=== PATIENT | male | born 1970 | race Caucasian/White ===

== ENCOUNTER 2023-09-05 09:01 | Inpatient (IN) ==
[2023-09-05] MEDS ORDERED: ONDANSETRON 4 MG/2 ML VIAL IV ONE (09:36)
[2023-09-05] MEDS ORDERED: 0.9 % SODIUM CHLORIDE 2,000 ML IV ONE (09:37)
[2023-09-05 10:30] LABS: Basophils # (Auto) 0.15 K/mcL (0.00-0.30); Basophils % (Auto) 0.8 % (0.0-2.0); Eosinophils # (Auto) 0.05 K/mcL (0.00-0.70); Eosinophils % (Auto) 0.3 % (0.0-7.0); Hemoglobin 15.2 g/dL (13.7-17.5); Lymphocytes # (Auto) 1.21 K/mcL (1.50-4.80); Lymphocytes % (Auto) 6.7 % (15.5-49.0); Mean Cell Volume 98.9 fL (80.0-100.0); Mean Corpuscular HGB Conc 35.3 g/dL (31.0-36.0); Mean Platelet Volume 10.7 fL (8.8-12.5); Monocytes # (Auto) 2.27 K/mcL (0.10-0.90); Monocytes % (Auto) 12.5 % (1.0-12.0); Platelet Count 393 K/mcL (140-440); RBC 4.35 M/mcL (4.63-6.08); Red Cell Distribution Width 15.9 % (11.5-14.5); WBC 18.2 K/mcL (4.5-11.0)
[2023-09-05] MEDS: PIPERACILLIN SODIUM/TAZOBACTAM 3.375 GM in DEXTROSE 5% IN WATER 50 ML IV SCH ×4 (10:44→23:38)
[2023-09-05] MEDS ORDERED: 0.9 % SODIUM CHLORIDE 1,000 ML IV ONE (10:53)
[2023-09-05 11:12] LABS: ALT/SGPT 75 U/L (<40); AST/SGOT 158 U/L (<40); Albumin 2.4 gm/dL (3.2-5.2); Albumin/Globulin Ratio 0.5 (1.0-2.3); Alkaline Phosphatase 203 U/L (39-117); Bilirubin,Total 10.8 mg/dL (0.1-1.0); Blood Urea Nitrogen 25 mg/dL (6-20); Calcium 8.4 mg/dL (8.6-10.4); Carbon Dioxide 19 mmol/L (22-30); Chloride 100 mmol/L (96-108); Globulin 4.8 gm/dL (2.2-3.7); Glucose 93 mg/dL (70-105)
[2023-09-05 12:26] LABS: Appearance,Urine HAZY (Clear); Bacteria,Urine FEW /hpf (0); Color,Urine Amber; Culture Indicated,Urine Yes; Glucose,Urine (UA) Negative (Negative); Ketones,Urine Negative (Negative); Leukocyte Esterase,Urine Negative /uL (Negative); Mucus,Urine MANY /hpf; Nitrate,Urine Negative (Negative); Protein,Urine 30 mg/dL (Negative); Specific Gravity,Urine 1.019 (1.000-1.035); Urine Amorphous Crystals FEW /hpf; Urine Blood 0.03 mg/dL (Negative); Urine Hyaline Cast 18 /lph (0-2); Urine RBC < 1 /hpf (0-3); Urine Renal Epithelial Cells 4 /hpf (0-2); Urine Squamous Epithelial Cell 1 /hpf (0-4); Urine Transitional Epi Cells 2 /hpf (0-2); Urine WBC 9 /hpf (0-4)
[2023-09-05] MEDS ORDERED: ACETAMINOPHEN 325 MG TABLET PO ONE (15:18)
[2023-09-05] MEDS ORDERED: IPRATROPIUM/ALBUTEROL 3 ML AMPUL.NEB NEB PRN (17:11)
[2023-09-05] MEDS ORDERED: ONDANSETRON 4 MG/2 ML VIAL IV PRN (17:11)
[2023-09-05] MEDS ORDERED: ACETAMINOPHEN 650 MG/65 ML BAG IV ONE (17:11)
[2023-09-05] MEDS ORDERED: ACETAMINOPHEN 325 MG TABLET PO PRN (17:11)
[2023-09-05 17:41] LABS: INR 1.2 (0.9-1.1); Prothrombin Time 15.8 sec (11.9-14.5)
[2023-09-05] MEDS: 0.9 % SODIUM CHLORIDE 1,000 ML IV SCH (18:35)
[2023-09-05] MEDS: 0.9 % SODIUM CHLORIDE 10 ML SYRINGE IV SCH (20:42)
[2023-09-05] MEDS: DOCUSATE SODIUM 100 MG CAPSULE PO SCH (20:58)
[2023-09-05] MEDS: ASPIRIN 81 MG TAB.CHEW PO SCH (20:58)
[2023-09-05] MEDS: SENNOSIDES 1 TABLET PO SCH (22:28)
[2023-09-05] MEDS: MAGNESIUM OXIDE 400 MG TABLET PO SCH (22:29)
[2023-09-05] MEDS: azaTHIOprine 50 MG TABLET PO SCH (22:29)
[2023-09-05] MEDS: FISH OIL 1,000 MG CAPSULE PO SCH (22:29)
[2023-09-05] MEDS: PANTOPRAZOLE 40 MG TABLET PO SCH (22:30)
[2023-09-05] MEDS: URSODIOL 500 MG PO SCH (22:30)
[2023-09-05] MEDS: TACROLIMUS 0.5 MG CAPSULE PO SCH (22:30)
[2023-09-06] MEDS: morphine 4 MG/ML VIAL IV PRN ×3 (02:26→22:57)
[2023-09-06] MEDS: 0.9 % SODIUM CHLORIDE 10 ML SYRINGE IV SCH ×3 (05:12→21:13)
[2023-09-06] MEDS: 0.9 % SODIUM CHLORIDE 1,000 ML IV SCH ×3 (05:12→15:42)
[2023-09-06] MEDS: PIPERACILLIN SODIUM/TAZOBACTAM 3.375 GM in DEXTROSE 5% IN WATER 50 ML IV SCH ×4 (05:12→23:05)
[2023-09-06 07:56] LABS: INR 1.4 (0.9-1.1); Prothrombin Time 17.8 sec (11.9-14.5)
[2023-09-06 08:33] LABS: Basophils # (Auto) 0.07 K/mcL (0.00-0.30); Basophils % (Auto) 0.8 % (0.0-2.0); Eosinophils # (Auto) 0.31 K/mcL (0.00-0.70); Eosinophils % (Auto) 3.4 % (0.0-7.0); Hematocrit 50.8 % (40.1-51.0); Hemoglobin 17.8 g/dL (13.7-17.5); Lymphocytes % (Auto) 16.3 % (15.5-49.0); Mean Cell Volume 99.2 fL (80.0-100.0); Mean Platelet Volume 10.9 fL (8.8-12.5); Monocytes # (Auto) 0.99 K/mcL (0.10-0.90); Monocytes % (Auto) 10.7 % (1.0-12.0); Neutrophils % (Auto) 68.4 % (38.0-78.0); Platelet Count 247 K/mcL (140-440); Red Cell Distribution Width 15.9 % (11.5-14.5); WBC 9.2 K/mcL (4.5-11.0)
[2023-09-06 08:45] LABS: RBC 5.12 M/mcL (4.63-6.08)
[2023-09-06 09:06] LABS: ALT/SGPT 66 U/L (<40); AST/SGOT 127 U/L (<40); Albumin 2.2 gm/dL (3.2-5.2); Albumin/Globulin Ratio 0.5 (1.0-2.3); Alkaline Phosphatase 180 U/L (39-117); Bilirubin,Total 10.6 mg/dL (0.1-1.0); Blood Urea Nitrogen 22 mg/dL (6-20); Calcium 7.9 mg/dL (8.6-10.4); Carbon Dioxide 19 mmol/L (22-30); Chloride 105 mmol/L (96-108); Globulin 4.3 gm/dL (2.2-3.7); Glomerular Filtration Rate 123; Glucose 117 mg/dL (70-105)
[2023-09-06] MEDS: DOCUSATE SODIUM 100 MG CAPSULE PO SCH ×2 (09:23→21:12)
[2023-09-06] MEDS: MULTIVIT,THER IRON,CA,FA & MIN 1 TABLET PO SCH (09:24)
[2023-09-06] MEDS: FOLIC ACID 1 MG TABLET PO SCH (09:24)
[2023-09-06] MEDS: FISH OIL 1,000 MG CAPSULE PO SCH ×2 (09:24→21:12)
[2023-09-06] MEDS: MAGNESIUM OXIDE 400 MG TABLET PO SCH ×2 (09:24→21:12)
[2023-09-06] MEDS: ENOXAPARIN 40 MG/0.4 ML SYRINGE SQ SCH (09:24)
[2023-09-06] MEDS: LISINOPRIL 5 MG TABLET PO SCH (09:25)
[2023-09-06] MEDS: URSODIOL 500 MG PO SCH ×2 (09:25→21:12)
[2023-09-06] MEDS: predniSONE 5 MG TABLET PO SCH (09:25)
[2023-09-06] MEDS: TACROLIMUS 0.5 MG CAPSULE PO SCH ×2 (09:25→21:12)
[2023-09-06] MEDS: ACETAMINOPHEN 650 MG/65 ML BAG IV PRN (15:42)
[2023-09-06] MEDS: ASPIRIN 81 MG TAB.CHEW PO SCH (21:12)
[2023-09-06] MEDS: azaTHIOprine 50 MG TABLET PO SCH (21:12)
[2023-09-06] MEDS: traZODone HCL 50 MG TABLET PO PRN (21:13)
[2023-09-06] MEDS: PANTOPRAZOLE 40 MG TABLET PO SCH ×2 (21:13→21:15)
[2023-09-06] MEDS: SENNOSIDES 1 TABLET PO SCH (21:13)
[2023-09-07] MEDS: 0.9 % SODIUM CHLORIDE 1,000 ML IV SCH ×2 (03:27→10:01)
[2023-09-07] MEDS: ACETAMINOPHEN 650 MG/65 ML BAG IV PRN ×2 (03:38→22:43)
[2023-09-07] MEDS: PIPERACILLIN SODIUM/TAZOBACTAM 3.375 GM in DEXTROSE 5% IN WATER 50 ML IV SCH ×4 (05:26→23:24)
[2023-09-07] MEDS: 0.9 % SODIUM CHLORIDE 10 ML SYRINGE IV SCH ×3 (05:27→21:00)
[2023-09-07 07:31] LABS: Basophils # (Auto) 0.09 K/mcL (0.00-0.30); Basophils % (Auto) 0.7 % (0.0-2.0); Eosinophils # (Auto) 0.49 K/mcL (0.00-0.70); Eosinophils % (Auto) 3.7 % (0.0-7.0); Hematocrit 41.9 % (40.1-51.0); Hemoglobin 14.3 g/dL (13.7-17.5); Lymphocytes # (Auto) 1.25 K/mcL (1.50-4.80); Lymphocytes % (Auto) 9.5 % (15.5-49.0); Mean Cell Volume 100.7 fL (80.0-100.0); Mean Corpuscular HGB Conc 34.1 g/dL (31.0-36.0); Mean Platelet Volume 10.7 fL (8.8-12.5); Monocytes # (Auto) 1.31 K/mcL (0.10-0.90); Neutrophils % (Auto) 75.4 % (38.0-78.0); Platelet Count 395 K/mcL (140-440); RBC 4.16 M/mcL (4.63-6.08); Red Cell Distribution Width 16.3 % (11.5-14.5); WBC 13.1 K/mcL (4.5-11.0)
[2023-09-07 07:33] LABS: INR 1.2 (0.9-1.1); Prothrombin Time 15.3 sec (11.9-14.5)
[2023-09-07 07:45] LABS: ALT/SGPT 60 U/L (<40); AST/SGOT 98 U/L (<40); Albumin 2.2 gm/dL (3.2-5.2); Albumin/Globulin Ratio 0.5 (1.0-2.3); Alkaline Phosphatase 185 U/L (39-117); Bilirubin,Total 10.5 mg/dL (0.1-1.0); Blood Urea Nitrogen 16 mg/dL (6-20); Calcium 8.4 mg/dL (8.6-10.4); Carbon Dioxide 20 mmol/L (22-30); Chloride 104 mmol/L (96-108); Globulin 4.6 gm/dL (2.2-3.7); Glucose 83 mg/dL (70-105)
[2023-09-07] MEDS: morphine 4 MG/ML VIAL IV PRN (08:17)
[2023-09-07] MEDS: ENOXAPARIN 40 MG/0.4 ML SYRINGE SQ SCH (08:33)
[2023-09-07] MEDS: DOCUSATE SODIUM 100 MG CAPSULE PO SCH ×2 (08:33→20:57)
[2023-09-07] MEDS: FOLIC ACID 1 MG TABLET PO SCH (08:33)
[2023-09-07] MEDS: MAGNESIUM OXIDE 400 MG TABLET PO SCH ×2 (08:33→20:58)
[2023-09-07] MEDS: FISH OIL 1,000 MG CAPSULE PO SCH ×2 (08:33→20:57)
[2023-09-07] MEDS: predniSONE 5 MG TABLET PO SCH (08:34)
[2023-09-07] MEDS: MULTIVIT,THER IRON,CA,FA & MIN 1 TABLET PO SCH (08:34)
[2023-09-07] MEDS: URSODIOL 500 MG PO SCH ×2 (08:34→20:58)
[2023-09-07] MEDS: TACROLIMUS 0.5 MG CAPSULE PO SCH ×2 (08:35→20:58)
[2023-09-07] MEDS: LISINOPRIL 5 MG TABLET PO SCH (08:35)
[2023-09-07] MEDS ORDERED: KETOROLAC 10 MG TABLET PO PRN (12:35)
[2023-09-07] MEDS: azaTHIOprine 50 MG TABLET PO SCH (20:57)
[2023-09-07] MEDS: ASPIRIN 81 MG TAB.CHEW PO SCH (20:57)
[2023-09-07] MEDS: PANTOPRAZOLE 40 MG TABLET PO SCH (20:58)
[2023-09-07] MEDS: SENNOSIDES 1 TABLET PO SCH (20:58)
[2023-09-07] MEDS: traZODone HCL 50 MG TABLET PO PRN (22:22)
[2023-09-08] MEDS: PIPERACILLIN SODIUM/TAZOBACTAM 3.375 GM in DEXTROSE 5% IN WATER 50 ML IV SCH (05:58)
[2023-09-08] MEDS: 0.9 % SODIUM CHLORIDE 10 ML SYRINGE IV SCH (05:58)
[2023-09-08 06:36] LABS: Basophils % (Auto) 0.9 % (0.0-2.0); Eosinophils # (Auto) 0.34 K/mcL (0.00-0.70); Eosinophils % (Auto) 3.1 % (0.0-7.0); Hematocrit 39.3 % (40.1-51.0); Hemoglobin 13.5 g/dL (13.7-17.5); Lymphocytes % (Auto) 14.5 % (15.5-49.0); Mean Cell Volume 99.7 fL (80.0-100.0); Mean Corpuscular HGB Conc 34.4 g/dL (31.0-36.0); Mean Platelet Volume 10.7 fL (8.8-12.5); Monocytes # (Auto) 1.07 K/mcL (0.10-0.90); Monocytes % (Auto) 9.7 % (1.0-12.0); Neutrophils % (Auto) 71.2 % (38.0-78.0); Platelet Count 421 K/mcL (140-440); RBC 3.94 M/mcL (4.63-6.08); Red Cell Distribution Width 16.2 % (11.5-14.5); WBC 11.1 K/mcL (4.5-11.0)
[2023-09-08 06:53] LABS: INR 1.1 (0.9-1.1); Prothrombin Time 14.9 sec (11.9-14.5)
[2023-09-08 08:01] LABS: ALT/SGPT 50 U/L (<40); AST/SGOT 72 U/L (<40); Albumin 2.1 gm/dL (3.2-5.2); Albumin/Globulin Ratio 0.5 (1.0-2.3); Alkaline Phosphatase 167 U/L (39-117); Bilirubin,Total 8.8 mg/dL (0.1-1.0); Blood Urea Nitrogen 22 mg/dL (6-20); Calcium 8.7 mg/dL (8.6-10.4); Carbon Dioxide 22 mmol/L (22-30); Chloride 105 mmol/L (96-108); Globulin 4.4 gm/dL (2.2-3.7); Glomerular Filtration Rate 101; Glucose 101 mg/dL (70-105)
[2023-09-08] MEDS: MAGNESIUM OXIDE 400 MG TABLET PO SCH (08:38)
[2023-09-08] MEDS: URSODIOL 500 MG PO SCH (08:38)
[2023-09-08] MEDS: FISH OIL 1,000 MG CAPSULE PO SCH (08:38)
[2023-09-08] MEDS: DOCUSATE SODIUM 100 MG CAPSULE PO SCH (08:38)
[2023-09-08] MEDS: FOLIC ACID 1 MG TABLET PO SCH (08:38)
[2023-09-08] MEDS: MULTIVIT,THER IRON,CA,FA & MIN 1 TABLET PO SCH (08:38)
[2023-09-08] MEDS: ENOXAPARIN 40 MG/0.4 ML SYRINGE SQ SCH (08:38)
[2023-09-08] MEDS: predniSONE 5 MG TABLET PO SCH (08:38)
[2023-09-08] MEDS: LISINOPRIL 5 MG TABLET PO SCH (08:39)
[2023-09-08] MEDS: TACROLIMUS 0.5 MG CAPSULE PO SCH (08:39)
== END 2023-09-08 14:25 | disposition home or self-care (01) | DRG 444 ==
LOC: ED 09:01 → MEDSUR 17:12
PROVIDERS: ADMIT Internal Medicine; ATTEND Internal Medicine

== ENCOUNTER 2024-05-20 10:36 | Inpatient (IN) ==
[2024-05-20] MEDS ORDERED: IOPAMIDOL 100 ML BOTTLE IV ONE (10:37)
[2024-05-20 11:43] LABS: POC INR 1.2 (0.8-1.2); POC Pro Time 14.8 (11.9-14.5)
[2024-05-20 11:43] LABS: Basophils # (Auto) 0.09 K/mcL (0.00-0.30); Basophils % (Auto) 0.8 % (0.0-2.0); Eosinophils # (Auto) 0.49 K/mcL (0.00-0.70); Eosinophils % (Auto) 4.2 % (0.0-7.0); Hematocrit 42.5 % (40.1-51.0); Hemoglobin 14.6 g/dL (13.7-17.5); Lymphocytes # (Auto) 2.29 K/mcL (1.50-4.80); Lymphocytes % (Auto) 19.7 % (15.5-49.0); Mean Cell Volume 109.8 fL (80.0-100.0); Mean Corpuscular HGB Conc 34.4 g/dL (31.0-36.0); Mean Platelet Volume 9.9 fL (8.8-12.5); Monocytes # (Auto) 1.38 K/mcL (0.10-0.90); Monocytes % (Auto) 11.9 % (1.0-12.0); Neutrophils % (Auto) 62.7 % (38.0-78.0); Platelet Count 456 K/mcL (140-440); RBC 3.87 M/mcL (4.63-6.08); Red Cell Distribution Width 15.1 % (11.5-14.5); WBC 11.6 K/mcL (4.5-11.0)
[2024-05-20 11:52] LABS: Lactate Dehydrogenase 498 U/L (135-225)
[2024-05-20 11:55] LABS: ALT/SGPT 50 U/L (<40); AST/SGOT 105 U/L (<40); Albumin/Globulin Ratio 0.6 (1.0-2.3); Alkaline Phosphatase 186 U/L (39-117); Bilirubin,Total 4.3 mg/dL (0.1-1.0); Blood Urea Nitrogen 25 mg/dL (6-20); Calcium 8.6 mg/dL (8.6-10.4); Carbon Dioxide 18 mmol/L (22-30); Chloride 109 mmol/L (96-108); Globulin 4.7 gm/dL (2.2-3.7); Glomerular Filtration Rate 101; Glucose 116 mg/dL (70-105); Potassium 4.4 mmol/L (3.3-5.1); Sodium 137 mmol/L (133-145)
[2024-05-20 12:09] LABS: INR 1.1 (0.9-1.1); Prothrombin Time 14.4 sec (11.9-14.5)
[2024-05-20] MEDS: LACTULOSE 20 GM/30 ML ORAL.SOL PO ONE (12:09)
[2024-05-20] MEDS: CLOPIDOGREL 75 MG TABLET PO ONE (12:17)
[2024-05-20] MEDS: 0.9 % SODIUM CHLORIDE 1,000 ML IV SCH ×2 (12:17→16:52)
[2024-05-20] MEDS: ASPIRIN 325 MG ENTERIC COATED TABLET PO ONE (12:17)
[2024-05-20 12:29] LABS: Appearance,Urine Clear (Clear); Bilirubin,Urine Small mg/dL (Negative); Color,Urine Yellow; Culture Indicated,Urine No; Glucose,Urine (UA) Negative (Negative); Ketones,Urine Negative (Negative); Leukocyte Esterase,Urine Negative /uL (Negative); Nitrate,Urine Negative (Negative); Protein,Urine Negative (Negative); Specific Gravity,Urine 1.015 (1.000-1.035); Urine Blood Negative ery/mcL (Negative); Urobilinogen,Urine Normal
[2024-05-20] MEDS ORDERED: ONDANSETRON 4 MG/2 ML VIAL IV PRN (16:49)
[2024-05-20] MEDS ORDERED: IPRATROPIUM/ALBUTEROL 3 ML AMPUL.NEB NEB PRN (16:49)
[2024-05-20] MEDS ORDERED: POTASSIUM CHLORIDE 40 MEQ in DEXTROSE 5% IN WATER 500 ML IV PRN (16:49)
[2024-05-20] MEDS ORDERED: MAGNESIUM SULFATE 2 GM/50 ML BAG IV PRN (16:49)
[2024-05-20] MEDS ORDERED: SENNOSIDES 1 TABLET PO PRN (16:49)
[2024-05-20] MEDS ORDERED: POTASSIUM CHLORIDE 20 MEQ TABLET PO PRN ×2 (16:49)
[2024-05-20] MEDS ORDERED: POLYETHYLENE GLYCOL 3350 17 GM PACKET PO PRN (16:49)
[2024-05-20] MEDS ORDERED: LACTULOSE 20 GM/30 ML ORAL.SOL PO PRN (16:49)
[2024-05-20] MEDS: SODIUM BICARBONATE 650 MG TABLET PO SCH (18:07)
[2024-05-20] MEDS: LACTULOSE 20 GM/30 ML ORAL.SOL PO SCH (20:58)
[2024-05-20] MEDS: ASPIRIN 81 MG TAB.CHEW PO SCH (20:58)
[2024-05-20] MEDS: azaTHIOprine 50 MG TABLET PO SCH (20:59)
[2024-05-20] MEDS: 0.9 % SODIUM CHLORIDE 10 ML SYRINGE IV SCH (20:59)
[2024-05-20] MEDS: DOCUSATE SODIUM 100 MG CAPSULE PO SCH (20:59)
[2024-05-20] MEDS: PANTOPRAZOLE 40 MG TABLET PO SCH (20:59)
[2024-05-20] MEDS: URSODIOL 500 MG PO SCH (21:25)
[2024-05-20] MEDS: TACROLIMUS 0.5 MG CAPSULE PO SCH (21:26)
[2024-05-21 06:22] LABS: ALT/SGPT 53 U/L (<40); AST/SGOT 102 U/L (<40); Albumin 2.8 gm/dL (3.2-5.2); Albumin/Globulin Ratio 0.6 (1.0-2.3); Alkaline Phosphatase 181 U/L (39-117); Bilirubin,Direct 4.8 mg/dL (<0.3); Bilirubin,Total 6.3 mg/dL (0.1-1.0); Blood Urea Nitrogen 21 mg/dL (6-20); Carbon Dioxide 17 mmol/L (22-30); Chloride 109 mmol/L (96-108); Globulin 4.4 gm/dL (2.2-3.7); Glomerular Filtration Rate 106; Glucose 98 mg/dL (70-105); Lactate Dehydrogenase 450 U/L (135-225); Phosphorous 2.5 mg/dL (2.5-4.5); Potassium 4.3 mmol/L (3.3-5.1); Sodium 135 mmol/L (133-145); Triglycerides 74 mg/dL (<150); Uric Acid 4.8 mg/dL (2.5-8.0)
[2024-05-21 07:26] LABS: Basophils # (Auto) 0.08 K/mcL (0.00-0.30); Basophils % (Auto) 0.7 % (0.0-2.0); Eosinophils # (Auto) 0.52 K/mcL (0.00-0.70); Eosinophils % (Auto) 4.6 % (0.0-7.0); Hematocrit 40.4 % (40.1-51.0); Hemoglobin 13.6 g/dL (13.7-17.5); Lymphocytes # (Auto) 1.83 K/mcL (1.50-4.80); Lymphocytes % (Auto) 16.2 % (15.5-49.0); Mean Cell Volume 112.2 fL (80.0-100.0); Mean Corpuscular HGB Conc 33.7 g/dL (31.0-36.0); Mean Platelet Volume 9.9 fL (8.8-12.5); Monocytes # (Auto) 1.46 K/mcL (0.10-0.90); Monocytes % (Auto) 12.9 % (1.0-12.0); Neutrophils % (Auto) 64.7 % (38.0-78.0); Platelet Count 450 K/mcL (140-440); Red Cell Distribution Width 15.3 % (11.5-14.5); WBC 11.3 K/mcL (4.5-11.0)
[2024-05-21] MEDS ORDERED: BUTALB/ACETAMINOPHEN/CAFFEINE 1 TABLET PO PRN (07:53)
[2024-05-21] MEDS ORDERED: oxyCODONE IR 5 MG TABLET PO PRN (07:54)
[2024-05-21] MEDS: ACETAMINOPHEN 325 MG TABLET PO PRN (08:07)
[2024-05-21] MEDS: IBUPROFEN 600 MG TABLET PO PRN (08:08)
[2024-05-21] MEDS: FOLIC ACID 1 MG TABLET PO SCH (09:58)
[2024-05-21] MEDS: predniSONE 5 MG TABLET PO SCH (09:58)
[2024-05-21] MEDS: ENOXAPARIN 40 MG/0.4 ML SYRINGE SQ SCH (09:58)
[2024-05-21] MEDS: ENALAPRIL 5 MG TABLET PO SCH (10:51)
[2024-05-21] MEDS: LANSOPRAZOLE 30MG PO SCH (20:36)
[2024-05-22 06:38] LABS: ALT/SGPT 48 U/L (<40); AST/SGOT 91 U/L (<40); Albumin 2.8 gm/dL (3.2-5.2); Albumin/Globulin Ratio 0.6 (1.0-2.3); Alkaline Phosphatase 191 U/L (39-117); Bilirubin,Direct 3.3 mg/dL (<0.3); Bilirubin,Total 4.4 mg/dL (0.1-1.0); Blood Urea Nitrogen 31 mg/dL (6-20); Calcium 8.1 mg/dL (8.6-10.4); Carbon Dioxide 18 mmol/L (22-30); Chloride 112 mmol/L (96-108); Globulin 4.6 gm/dL (2.2-3.7); Glomerular Filtration Rate 106; Glucose 142 mg/dL (70-105); Lactate Dehydrogenase 415 U/L (135-225); Phosphorous 2.2 mg/dL (2.5-4.5); Potassium 4.1 mmol/L (3.3-5.1); Sodium 140 mmol/L (133-145); Triglycerides 78 mg/dL (<150); Uric Acid 4.6 mg/dL (2.5-8.0)
[2024-05-23] MEDS ORDERED: FUROSEMIDE 40 MG TABLET PO SCH (09:00)
== END 2024-05-22 14:25 | disposition home or self-care (01) | DRG 442 ==
LOC: ED 10:36 → MEDSUR 16:39
PROVIDERS: ADMIT Internal Medicine; ATTEND Internal Medicine